=== PATIENT | male | born 1965 | race Caucasian/White ===

== ENCOUNTER 2022-06-27 18:50 | Emergency (ER) | payer OTHER ==
[~2022-06-27] VITALS: Ht 162.6 cm; Wt 100.0 kg
[2022-06-27 21:30] VITALS: BP 124/78
== END 2022-06-27 23:18 | disposition home or self-care (01) ==
LOC: EMS 18:59
DX: R60.0 Localized edema (principal); F11.90 Opioid use, unspecified, uncomplicated; F15.90 Other stimulant use, unspecified, uncomplicated; F17.210 Nicotine dependence, cigarettes, uncomplicated
CPT/HCPCS: 93005; 99281

== ENCOUNTER 2024-04-18 16:30 | Emergency (ER) | payer OTHER ==
[~2024-04-18] VITALS: Ht 167.6 cm; Wt 86.4 kg
[2024-04-18 16:35] VITALS: BP 114/83; PULSE 62; RESP 18; TEMP 97.9
[2024-04-18] MEDS ORDERED: BUPR1FIL7 SL (16:37)
[2024-04-18] MEDS ORDERED: BUPR1TAB46 SL (19:38)
== END 2024-04-18 20:12 | disposition home or self-care (01) ==
LOC: EMS 16:30
DX: F11.90 Opioid use, unspecified, uncomplicated (principal); F17.210 Nicotine dependence, cigarettes, uncomplicated; F12.90 Cannabis use, unspecified, uncomplicated; F15.90 Other stimulant use, unspecified, uncomplicated
CPT/HCPCS: 99281; 99283

== ENCOUNTER 2024-05-09 11:56 | Emergency (ER) | payer OTHER ==
[~2024-05-09] VITALS: Ht 167.6 cm; Wt 77.3 kg
[~2024-05-09 11:56] MED LIST: BUPR1FIL7 SL; BUPR1TAB46 SL
[2024-05-09] MEDS ORDERED: BUPR1TAB32 SL ×2 (12:01→12:46)
[2024-05-09 12:02] VITALS: TEMP 97.7
[2024-05-09 13:29] VITALS: BP 111/72; PULSE 67; RESP 18
== END 2024-05-09 13:36 | disposition home or self-care (01) ==
LOC: EMS 11:56
DX: F11.20 Opioid dependence, uncomplicated (principal); F17.210 Nicotine dependence, cigarettes, uncomplicated; F12.90 Cannabis use, unspecified, uncomplicated; F15.10 Other stimulant abuse, uncomplicated
CPT/HCPCS: 99281; Z7502